=== PATIENT | male | born 1970 | race Caucasian/White ===

== ENCOUNTER 2021-05-18 09:41 | Emergency (ER) | payer OTHER ==
[2021-05-18 11:21] LABS: BASOPHIL 0.6 % (0-2); EOSINOPHIL 0.2 % (0-5); HCT 44.5 % (42.0-52.0); HGB 15.2 g/dl (13.2-18.0); LYMPHOCYTE 27.7 % (15-48); MCH 30.7 pg (25.0-31.0); MCHC 34.2 g/dL (32.0-36.0); MCV 89.9 fL (78.0-100.0); MONOCYTE 6.7 % (0-12); MPV 10.4 fL (6.0-9.5); NRBC 0; PLT 233 K/uL (150-400); RBC 4.95 M/uL (4.70-6.00); RDW 12.7 % (11.5-14.0); WBC 4.9 K/uL (4.0-10.5)
[2021-05-18 11:22] LABS: D-DIMER 0.35 ug/mLFEU (0.00-0.41); INR 1.06 (0.9-1.2); PROTHROMBIN TIME 13.2 SECONDS (11.8-13.4); PTT 25.5 SECONDS (24.4-34.7)
[2021-05-18 11:37] LABS: ALBUMIN 3.8 g/dL (3.4-5.0); BILIRUBIN - TOTAL 0.5 mg/dL (0.2-1.0); BUN/CREAT RATIO (CALC) 22.2 RATIO; CREATININE 0.9 mg/dL (0.67-1.17); GLOBULIN (CALCULATION) 3.6 g/dL; POTASSIUM 3.8 mmol/L (3.5-5.1); TOTAL PROTEIN 7.4 g/dL (6.4-8.2)
[2021-05-18 11:43] LABS: PRO-BNP 27 pg/mL (<125)
[2021-05-18] MEDS ORDERED: ASPIR-TRIN325 MG PO (14:09)
== END 2021-05-18 14:28 | disposition home or self-care (01) ==
LOC: FER 09:41
PROVIDERS: Emergency Medicine
DX: R07.89 Other chest pain (principal); Z88.0 Allergy status to penicillin
CPT/HCPCS: 36415; 71045; 80053; 83690; 83735; 83880; 84484; 85025; 85379; 85610; 85730; 93005